=== PATIENT | male | born 1965 ===

== ENCOUNTER 2016-11-16 17:37 | Inpatient (IN) | payer MEDICAID ==
[2016-11-16] MEDS: Thiamine TAB* 100 MG TAB PO SCH (22:02)
[2016-11-16] MEDS: Folic Acid TAB* 1 MG PO SCH (22:02)
[2016-11-16] MEDS: LORazepam TAB(*) 1 MG PO SCH (22:02)
[2016-11-16] MEDS: Acetaminophen TAB* 325 MG PO PRN (22:03)
[2016-11-16] MEDS: Multivitamins/Minerals TAB PO SCH (22:03)
[2016-11-17] MEDS: LORazepam TAB(*) 1 MG PO SCH ×10 (00:14→23:12)
--- NOTE | 2016-11-17 00:49 | HP ---
HOSPITAL MEDICINE HISTORY AND PHYSICAL: DATE OF ADMISSION: 11/16/16 PRIMARY CARE PHYSICIAN: Papo Mckenna. ATTENDING PHYSICIAN: Dr. Raimundo Mera* (dictation provided by Baylee Morales NP). CHIEF COMPLAINT: Fall while intoxicated with alcohol. HISTORY OF PRESENT ILLNESS: Mr. Powell is a 51-year-old male with a past medical history of chronic alcoholism, who presented to the hospital at [facility] with a report that he had fallen and hit his head while drinking 2 bottles of vodka. Mr. Powell is well known to the [facility] with multiple requests for alcohol detoxification. He was reported to have fallen in the bathroom and hit his head. He called 911 and said his head and neck hurt. He was reported to have an empty bottle of vodka next to him and was working on another bottle when they arrived. He stated that he "wants help. " He does have a history of delirium tremens with seizures during previous withdrawal episodes. In the [facility], the patient had a CT of the head and cervical spine without contrast, which showed no acute fractures or other problem. The patient's alcohol level was elevated to greater than 300. Unfortunately, though , I did not have a bed for him at [facility] and therefore plans were made for him to transfer to [facility] for further care. On arrival here, Mr. Powell states he "hurts all over." He denies any headache or neck pain and has no other complaint. PAST MEDICAL HISTORY: Alcoholism, delirium tremens, and seizures. MEDICATIONS: None. ALLERGIES: None. FAMILY HISTORY: The patient states the "back pain" runs in the family, but no other family history was available. SOCIAL HISTORY: The patient states he is a smoker of 1 pack of cigarettes per day as well as a chronic alcoholic, drinking 2 L of vodka a day. He would like Dr. Don to be his healthcare proxy. REVIEW OF SYSTEMS: A 14-point review of systems was completed with Mr. Powell and all those not mentioned above were negative. PHYSICAL EXAMINATION GENERAL: Mr. Powell is lying on the side of his bed. He is in no acute distress. VITAL SIGNS: Here at the hospital are pending. At [facility], he had a temperature of 96.4, pulse 87, respiratory rate 18, blood pressure 137/95, SpO2 is 97% on room air. LUNGS: Clear to auscultation bilaterally with no accessory muscle use and good aeration. HEART: S1, S2. No murmur, rub, or gallop, and regular. ABDOMEN: Soft, nontender with bowel sounds positive x4. EXTREMITIES: No cyanosis or edema. NEUROLOGIC: He is alert. He is oriented x3. He moves all extremities equally. There is no facial asymmetry or focal weakness. Extraocular movements are intact. SKIN: Intact. DIAGNOSTIC STUDIES/LAB DATA: In [facility], sodium is 145, potassium 4.1, chloride 103, serum bicarbonate 27, BUN 10, creatinine 0.8, glucose 84. WBC 6.17, hemoglobin 16.9, hematocrit 49.9, platelet count 357. Alcohol level is greater than 300. Head CT shows evidence of mild ethmoid sinus disease otherwise negative on CT scan of the brain and skull. The cervical spine without contrast showed degenerative changes as described above without acute fracture or subluxation. ASSESSMENT: Mr. Powell is a 51-year-old male with past medical history of chronic alcoholism, who presents today to our hospital from [facility] in transfer as there were no beds available there, for treatment of alcohol withdrawal with history of delirium tremens and seizures. Our plans are for inpatient admission, expected length of stay to be greater than 2 days for the followin. Alcohol detoxification with history of delirium tremens and seizures. The patient will be on the WA protocol with Ativan as needed for withdrawal symptoms. He will continue on multivitamin, folate, and thiamine. I will recheck all his labs tomorrow. At this time, he is resting comfortably. He will have seizure precautions with a licensed master social worker consult. 2. Smoking: The patient refused offer of nicotine replacement tonight. We can offer that again tomorrow to see if he is interested. I did offer minimal smoking cessation counseling as he is intoxicated. 3. DVT prophylaxis with SCDs. 4. Disposition. To medical floor. TIME SPENT: Approximately 60 minutes were spent on the admission of this patient, more than half the time spent with the patient at the bedside reviewing the events leading up to this hospitalization, performing the physical examination, and reviewing my plan of care. BAYLEE MORALES NP CC: Papo Mckenna * [id number]/[facility] #: [id number] TOAN
[2016-11-17 06:50] LABS: Hematocrit 40 % (42-52); Hemoglobin 13.5 g/dl (14.0-18.0); Mean Corpuscular HGB Conc 34 g/dl (31-36); Mean Corpuscular Hemoglobin 32 pg (27-31); Mean Corpuscular Volume 95 fL (80-94); Mean Platelet Volume 9 um3 (7.4-10.4); Red Blood Count 4.18 10^6/ul (4.0-5.4); Red Cell Distribution Width 14 % (10.5-15); White Blood Count 12.9 10^3/ul (3.5-10.8)
[2016-11-17 07:05] LABS: Calcium 8.8 mg/dL (8.6-10.3); EGFR African American 167.2 (>60)
[2016-11-17] MEDS: Folic Acid TAB* 1 MG PO SCH (08:43)
[2016-11-17] MEDS: Thiamine TAB* 100 MG TAB PO SCH (08:43)
[2016-11-17] MEDS: Multivitamins/Minerals TAB PO SCH (08:43)
--- NOTE | 2016-11-17 14:07 | PN ---
Subjective Date of Service: 11/17/16 Interval History: Patient is asking to be discharged to home telling the nurses "Im leaving", he dressed himself and was threatening to leave AMA. I came to the bedside and spoke to the patient and he has agreed to stay at this time. Per nurse he has been scoring on WAM. The patient reports he feels that he is detoxing. He denies hx of detox seizure or delirum tremens. He also states that he doesnt drink everyday. He currently reports mild tremors. Denies hallucinations, diaphoresis, N/V/D or abdominal pain. Reports good appetite. Objective Active Medications: Acetaminophen (Tylenol Tab*) 650 mg PO Q4H PRN PRN Reason: PAIN Last Admin: 11/16/16 22:03 Dose: 650 mg Folic Acid (Folvite Tab*) 1 mg PO DAILY [facility] Last Admin: 11/17/16 08:43 Dose: 1 mg Lactated Ringer's (Lactated Ringers 1000 Ml Bag*) 1,000 mls @ 125 mls/hr IV PER RATE [facility] Last Admin: 11/17/16 06:31 Dose: 125 mls/hr Lorazepam (Ativan Tab(*)) 0 mg PO .PER WAM SCORE [facility] PRN Reason: Protocol Last Admin: 11/17/16 12:11 Dose: 1 mg Multivitamins/Minerals (Theragran/Minerals Tab*) 1 tab PO DAILY [facility] Last Admin: 11/17/16 08:43 Dose: 1 tab Thiamine HCl (Vitamin B-1 Tab*) 100 mg PO DAILY [facility] Last Admin: 11/17/16 08:43 Dose: 100 mg Vital Signs 11/16/16 11/16/16 11/16/16 19:21 21:49 22:02 Temperature 97.6 F Pulse Rate 94 106 Respiratory 17 18 18 Rate Blood Pressure 126/88 125/81 (mmHg) O2 Sat by Pulse 97 97 Oximetry 11/17/16 11/17/16 11/17/16 00:02 00:06 00:14 Temperature 98.6 F Pulse Rate 115 Respiratory 17 17 Rate Blood Pressure 127/76 (mmHg) O2 Sat by Pulse 94 Oximetry 11/17/16 11/17/16 11/17/16 02:14 02:25 02:27 Temperature 98.2 F Pulse Rate 114 Respiratory 17 17 Rate Blood Pressure 116/68 (mmHg) O2 Sat by Pulse 95 Oximetry 11/17/16 11/17/16 11/17/16 04:13 04:16 04:25 Temperature Pulse Rate 116 Respiratory 18 16 Rate Blood Pressure 151/60 (mmHg) O2 Sat by Pulse 95 Oximetry 11/17/16 11/17/16 11/17/16 06:13 06:16 06:17 Temperature Pulse Rate 106 Respiratory 18 18 Rate Blood Pressure 164/82 (mmHg) O2 Sat by Pulse 93 Oximetry 11/17/16 11/17/16 11/17/16 08:00 08:15 08:42 Temperature 98.8 F Pulse Rate 103 Respiratory 12 18 18 Rate Blood Pressure 146/77 (mmHg) O2 Sat by Pulse 95 Oximetry 11/17/16 11/17/16 10:10 12:11 Temperature Pulse Rate 105 Respiratory 14 Rate Blood Pressure 139/83 (mmHg) O2 Sat by Pulse 94 Oximetry Oxygen Devices in Use Now: None Appearance: 51 yo male laying in bed A+O x3 in NAD, appropriate conversation, appears slightly agitated Eyes: No Scleral Icterus, PERRLA Ears/Nose/Mouth/Throat: NL Teeth, Lips, Gums, Mucous Membranes Moist Neck: NL Appearance and Movements; NL JVP Respiratory: Symmetrical Chest Expansion and Respiratory Effort, Clear to Auscultation Cardiovascular: NL Sounds; No Murmurs; No JVD, RRR, No Edema Abdominal: NL Sounds; No Tenderness; No Distention Extremities: No Edema, No Clubbing, Cyanosis Skin: No Rash or Ulcers, No Nodules or Sclerosis Neurological: Alert and Oriented x 3, NL Sensation, NL Muscle Strength and Tone Lines/Tubes/Other Access: Clean, Dry and Intact Peripheral IV Nutrition: Taking PO's Result Diagrams: 11/17/16 06:38 11/17/16 15:13 Assess/Plan/Problems-Billing Assessment: 51 yo male with a PMH chronic alcoholism with hx of seizures and delirium tremens, tobacco abuse who presented from [facility] after he fell and hit his head, he called 911. - Patient Problems (1) Alcohol withdrawal Comment: - Continue WAM protocol, continues to score - hx of detox seizure/delirium tremens - add on seizure prophylaxis ativan taper. Seizure precautions - Continues NS @ 100 ml/hr - Electrolyte replacement - add on LFTs - social work consult (2) Tobacco abuse Comment: - nicotine replacement - smoking cessation before discharge (3) Full code status (4) DVT prophylaxis Comment: HSQ Status and Disposition: inpatient with ETOH intoxication and withdrawals. social work following.
[2016-11-17] MEDS ORDERED: Nicotine Inhaler* 10 MG AMP INH PRN (14:08)
[2016-11-17] MEDS ORDERED: Mouth Piece, Nicotine* 1 EACH CARTRIDGE INH PRN (14:08)
[2016-11-17] MEDS ORDERED: Thiamine IV* 100 MG/ML 2 ML VIAL IM ONE (14:19)
[2016-11-17] MEDS ORDERED: Nicotine PATCH 21 MG/24 HR* PATCH TRANSDERM SCH (15:00)
[2016-11-17 15:37] LABS: BUN/Creatinine Ratio 17.6 (8-20); EGFR African American 158.7 (>60); EGFR Non-African American 123.4 (>60)
[2016-11-17] MEDS ORDERED: Ketorolac INJ* 30 MG/ML 1 ML VIAL IV PUSH ONE (16:29)
[2016-11-17 16:58] LABS: Albumin 3.5 g/dL (3.2-5.2); Direct Bilirubin 0.3 mg/dL (0.03-0.18); Globulin 2.7 g/dL (2-4); Indirect Bilirubin 1.1 mg/dL (0.3-1.0); Total Bilirubin 1.4 mg/dL (0.2-1.0); Total Protein 6.2 g/dL (6.4-8.9)
[2016-11-17] MEDS: Acetaminophen TAB* 325 MG PO PRN (17:07)
[2016-11-17] MEDS: NS 0.9% 1000 ML* 1,000 ML IV SCH (17:08)
[2016-11-17] MEDS ORDERED: Nicotine Patch Removal NOTE PATCH OFF SCH (21:00)
[2016-11-17] MEDS: Heparin VIAL(*) 5000 UNITS/ML VIAL (FIVE THOUSAND) SUBCUT SCH (21:11)
[2016-11-18] MEDS ORDERED: traMADol TAB* 50 MG PO PRN (00:04)
[2016-11-18] MEDS: NS 0.9% 1000 ML* 1,000 ML IV SCH (03:23)
[2016-11-18] MEDS: LORazepam TAB(*) 1 MG PO SCH ×2 (05:07→06:49)
[2016-11-18] MEDS: Heparin VIAL(*) 5000 UNITS/ML VIAL (FIVE THOUSAND) SUBCUT SCH (05:08)
[2016-11-18 06:47] LABS: Hematocrit 40 % (42-52); Hemoglobin 13.7 g/dl (14.0-18.0); Mean Corpuscular HGB Conc 34 g/dl (31-36); Mean Corpuscular Hemoglobin 33 pg (27-31); Mean Corpuscular Volume 96 fL (80-94); Mean Platelet Volume 9 um3 (7.4-10.4); Red Blood Count 4.18 10^6/ul (4.0-5.4); Red Cell Distribution Width 14 % (10.5-15); White Blood Count 7.6 10^3/ul (3.5-10.8)
[2016-11-18 06:58] LABS: Albumin 3.4 g/dL (3.2-5.2); BUN/Creatinine Ratio 13.9 (8-20); Calcium 8.8 mg/dL (8.6-10.3); EGFR African American 148.6 (>60); EGFR Non-African American 115.6 (>60); Globulin 2.6 g/dL (2-4); Potassium 3.8 mmol/L (3.5-5.0); Total Bilirubin 1.3 mg/dL (0.2-1.0)
[2016-11-18] MEDS: Thiamine TAB* 100 MG TAB PO SCH (07:35)
[2016-11-18] MEDS: Folic Acid TAB* 1 MG PO SCH (07:36)
[2016-11-18] MEDS: Multivitamins/Minerals TAB PO SCH (07:36)
[2016-11-18] MEDS ORDERED: Thiamine TAB* 100 MG TAB PO SCH (09:00)
[2016-11-18] MEDS ORDERED: Folic Acid TAB* 1 MG PO SCH (09:00)
[2016-11-18] MEDS ORDERED: Multivitamins/Minerals TAB PO SCH (09:00)
[2016-11-18 09:38] VITALS: BP 151/92
--- NOTE | 2016-11-18 23:20 | DS ---
DISCHARGE SUMMARY: DATE OF ADMISSION: 11/16/16 DATE OF DISCHARGE: 11/18/16 PRIMARY CARE PROVIDER: Dr. Noble Don. DISCHARGING PROVIDER: MAHESH Spence. SUPERVISING PHYSICIAN: Dr. Guerrero Son* (dictated by MAHESH Spence). PRIMARY DISCHARGE DIAGNOSES: 1. Acute alcohol withdrawal. 2. Alcohol intoxication. 3. Head contusion. 4. Medical noncompliance - discharge against medical advice. SECONDARY DISCHARGE DIAGNOSIS: Long history of alcoholism. DISCHARGE MEDICATIONS: 1. Ativan 1 mg p.o. q.4 hours as needed for agitation and tremor. 2. Lisinopril 20 mg p.o. daily. 3. Naltrexone 50 mg p.o. daily. MEDICATION CHANGES: 1. P.r.n. Ativan. 2. Start naltrexone. HOSPITAL IMAGING: Per report, CT of the head and cervical spine completed at [facility] demonstrated no fracture or other acute process. HOSPITAL COURSE: This is a 51-year-old gentleman with a long history of alcoholism and a documented history of associated DTs and seizures, although the patient denies this, who sustained a fall at home while intoxicated and contacted EMS who subsequently brought him to the emergency department for evaluation. The patient requested admission for detox at that time, but unfortunately there were bed constraints and the patient was subsequently transferred to [facility] for further treatment. CT scan of the head and cervical spine completed at [facility] was reportedly negative. The patient was started on a standing tapering dose of Ativan for seizure prophylaxis as well as p.r.n. use of oral Ativan per [facility] protocol. The patient demonstrated significant signs of withdrawal, but no seizure activity. The patient is requesting discharge to home at this time. The patient has received a total of 10 mg of lorazepam in the last 24 hours. He is able to clearly discuss the risks and benefits of maintaining hospitalization at this time and wishes to be discharged. He agrees to sign AMA paperwork. The patient is committed to maintaining sobriety and states that he has multiple sober friends as well as a sponsor and feels that it is possible for him to maintain sobriety at the time of discharge. He wishes to be started on naltrexone and also provided with a small supply of Ativan for continued withdrawal symptoms. DISPOSITION: The patient is being discharged to home against medical advice at this time. Discharged with 10 tablets of Ativan and a 30-day supply of naltrexone and encouraged close followup with his primary care provider. MAHESH SPENCE CC: Dr. Noble Don* [id number]/[facility] #: [id number] TOAN
== END 2016-11-18 10:05 | disposition left against medical advice (07) | DRG 770 ==
LOC: MED 19:15
PROVIDERS: ADMIT Internal Medicine; ATTEND Internal Medicine
PROC: HZ2ZZZZ Detoxification Services for Substance Abuse Treatment (ICD-10-PCS; principal; 2016-11-16)
DX: F10.239 Alcohol dependence with withdrawal, unspecified (principal); F10.229 Alcohol dependence with intoxication, unspecified; W18.30XA Fall on same level, unspecified, initial encounter; Y90.8 Blood alcohol level of 240 mg/100 ml or more; F17.210 Nicotine dependence, cigarettes, uncomplicated; S00.93XA Contusion of unspecified part of head, initial encounter; Z53.21 Procedure and treatment not carried out due to patient leaving prior to being seen by health care provider; Y92.002 Bathroom of unspecified non-institutional (private) residence as the place of occurrence of the external cause; Z82.69 Family history of other diseases of the musculoskeletal system and connective tissue; Z91.19 Patient's noncompliance with other medical treatment and regimen
CPT/HCPCS: 36415; 80048; 80053; 80076; 85025; A9270-GY; J1644; J1885